=== PATIENT | female | born 1980 | race Caucasian/White ===

== ENCOUNTER 2020-09-18 03:18 | Emergency (ER) | payer SELFPAY ==
[2020-09-18] MEDS ORDERED: LODINE CAP 300300 MG PO (05:06)
== END 2020-09-18 05:45 | disposition home or self-care (01) ==
LOC: ER1 03:18
DX: S63.502A Unspecified sprain of left wrist, initial encounter (principal); F17.210 Nicotine dependence, cigarettes, uncomplicated; W19.XXXA Unspecified fall, initial encounter; Y92.009 Unspecified place in unspecified non-institutional (private) residence as the place of occurrence of the external cause
CPT/HCPCS: 29125; 73110; 99283